=== PATIENT | male | born 1990 | race Two or more races ===

== ENCOUNTER 2019-06-04 12:32 | Emergency (ER) | payer SELFPAY ==
[~2019-06-04] VITALS: Ht 182.9 cm; Wt 79.0 kg
[~2019-06-04 12:32] MED LIST: LIDOcaine 1% W/epiNEPHrine 1:100,000 20ml vial ONE
[2019-06-04 12:51] VITALS: BP 114/70
[2019-06-04] MEDS ORDERED: BACDS PO (13:19)
== END 2019-06-04 13:48 | disposition home or self-care (01) ==
LOC: ER 12:33
DX: L02.214 Cutaneous abscess of groin (principal); Z79.899 Other long term (current) drug therapy
CPT/HCPCS: 10060; 99283